=== PATIENT | male | born 1985 | race Asian ===

== ENCOUNTER 2020-04-13 20:53 | Emergency (ER) | payer OTHER ==
[2020-04-13] MEDS ORDERED: NA CHLORIDE 0.9% 1,000 ML ONE (22:06)
[2020-04-13] MEDS ORDERED: FENTANYL CITR 100 MCG/2 ML ONE (22:06)
[2020-04-13] MEDS ORDERED: KETAMINE HCL 500 MG/5 ML VIAL ONE (22:12)
[2020-04-13] MEDS ORDERED: PROMETHAZINE INJ 25 MG/ML AMP ONE (22:12)
--- NOTE | 2020-04-14 00:07 | ER ---
Nurse's Notes [facility] [place] Name: Bronson Mosher Age: 34 yrs Sex: Male : 1985 Arrival Date: 04/13/2020 Time: 20:54 Bed 13 Private MD: Diagnosis: Dislocation and sprain of joints and ligaments of elbow;Distal humerus fracture;Fall on same level from slipping, tripping and stumbling with subsequent striking against other object Presentation: 04/13 21:25 Chief complaint: Patient states: Patient was fishing and felt into his left arm. ao Patient C/O pain in the left elbow. Coronavirus screen: Proceed with normal triage. Ebola Screen: Patient negative for fever greater than or equal to 101.5 degrees Fahrenheit, and additional compatible Ebola Virus Disease symptoms Patient denies exposure to infectious person. Patient denies travel to an Ebola-affected area in the 21 days before illness onset. Initial Sepsis Screen: Does the patient meet any 2 criteria? No. Patient's initial sepsis screen is negative. Does the patient have a suspected source of infection? No. Patient's initial sepsis screen is negative. Risk Assessment: Do you want to hurt yourself or someone else? Patient reports no desire to harm self or others. Onset of symptoms was April 13, 2020 at 20:30. 21:25 Method Of Arrival: Wheelchair ao 21:25 Acuity: ALESHA 3 ao Triage Assessment: 21:45 General: Appears in no apparent distress. uncomfortable, Behavior is calm, cooperative, vc appropriate for age. Historical: - Allergies: 21:28 No Known Allergies; ao - Home Meds: 21:28 None [Active]; ao - PMHx: 21:28 None; ao - PSHx: 21:28 None; ao - Immunization history:: Adult Immunizations up to date. - Social history:: Smoking status: Patient denies any tobacco usage or history of. Patient/guardian denies using alcohol, street drugs. Screenin:45 Abuse screen: Denies threats or abuse. Nutritional screening: No deficits noted. vc Tuberculosis screening: No symptoms or risk factors identified. Fall Risk Fall in past 12 months (25 points). No secondary diagnosis (0 pts). IV access (20 points). Ambulatory Aid- None/Bed Rest/Nurse Assist (0 pts). Gait- Normal/Bed Rest/Wheelchair (0 pts) Mental Status- Oriented to own ability (0 pts). Total Morales Fall Scale indicates Low Risk Score (25-44 pts). Fall prevention measures have been instituted. Side Rails Up X 2 Frequent Obs/Assesments occuring As available Patient and Family Educated on Fall Prevention Program and strategies. Assessment: 21:45 General: Appears in no apparent distress. uncomfortable, Behavior is calm, cooperative, vc appropriate for age. Pain: Complains of pain in left arm and left elbow Pain currently is 8 out of 10 on a pain scale. at worst was 10 out of 10 on a pain scale. Quality of pain is described as sharp, shooting, stabbing, Pain began 1 hour ago. Is continuous, Alleviated by rest, Aggravated by increased activity. Neuro: Level of Consciousness is awake, alert, obeys commands, Oriented to person, place, time, situation, Appropriate for age. Cardiovascular: Capillary refill < 3 seconds Patient's skin is warm and dry. Respiratory: Airway is patent Respiratory effort is even, unlabored, Respiratory pattern is regular, symmetrical. GI: No signs and/or symptoms were reported involving the gastrointestinal system. : No signs and/or symptoms were reported regarding the genitourinary system. Derm: Skin is intact, is healthy with good turgor, Skin temperature is warm. Musculoskeletal: Bony deformity noted of left elbow Swelling present in left arm. 22:45 Reassessment: Patient appears in no apparent distress at this time. Patient and/or vc family updated on plan of care and expected duration. Pain level reassessed. Patient is alert, oriented x 3, equal unlabored respirations, skin warm/dry/pink. 23:00 Reassessment: Patient appears in no apparent distress at this time. Patient laying with vc eyes closed, chest rising and falling equally. 04/14 00:00 Reassessment: Patient appears in no apparent distress at this time. No changes from vc previously documented assessment. 00:30 Reassessment: Patient appears in no apparent distress at this time. Patient and/or vc family updated on plan of care and expected duration. Pain level reassessed. Patient is alert, oriented x 3, equal unlabored respirations, skin warm/dry/pink. Patient states feeling better. 00:38 Reassessment: Patient waiting for disk with xrays before discharge. vc Vital Signs: 04/13 21:25 BP 129 / 90; Pulse 85; Resp 16; Temp 97.3(O); Pulse Ox 98% on R/A; Weight 83.46 kg; ao Height 5 ft. 8 in. (172.72 cm); Pain 8/10; 22:41 BP 126 / 84; Pulse 75; Resp 19; Pulse Ox 100% on R/A; vc 23:00 BP 134 / 98; Pulse 78; Resp 15; Pulse Ox 100% on R/A; vc 23:30 BP 134 / 85; Pulse 78; Resp 18; Pulse Ox 100% ; vc 04/14 00:00 BP 129 / 85; Pulse 77; Resp 19; Pulse Ox 100% ; vc 04/13 21:25 Body Mass Index 27.98 (83.46 kg, 172.72 cm) ao ED Course: 04/13 20:54 Patient arrived in ED. cl3 21:28 Triage completed. ao 21:28 Arm band placed on right wrist. Patient placed in an exam room, on air sampling and monitoring, on ao pulse oximetry. 21:36 Mairlin Elder FNP-C is PHCP. snw 21:37 Varun Varela MD is Attending Physician. snw 21:45 Patient has correct armband on for positive identification. child monitor on. Pulse vc ox on. NIBP on. 21:45 Inserted saline lock: 20 gauge in right antecubital area, using aseptic technique. ao Blood collected. 21:58 Shiloh Mcbride, RN is Primary Nurse. vc 21:59 Elbow Left 3 View XRAY In Process Unspecified. EDMS 22:56 Assist provider with reduction of left elbow using manipulation, Set up for procedure. vc Performed by Marilin HOLT Immobilized with terrie wrap, Patient tolerated well. 23:54 Sling applied to left arm. jp3 04/14 00:06 Lexa Rodriguez MD is Referral Physician. snw 00:30 IV discontinued, intact, bleeding controlled, No redness/swelling at site. Pressure vc dressing applied. 01:44 Elbow Left 2 View XRAY In Process Unspecified. EDMS Administered Medications: 04/13 22:04 Drug: NS 0.9% 1000 ml Route: IV; Rate: 1 bolus; Site: right antecubital; ao 22:04 Drug: fentaNYL (PF) 50 mcg Route: IVP; Site: right antecubital; ao 22:16 Drug: Phenergan 6.25 mg Route: IVP; Site: right antecubital; ah 22:48 Drug: Ketamine 80 mg Route: IVP; Site: right antecubital; vc 04/14 00:31 Drug: [place] (7.5 mg-325 mg) 1 tabs Route: PO; vc Outcome: 00:06 Discharge ordered by . snrei 00:45 Patient left the ED. lp1 00:45 Discharged to home via wheelchair, with family. vc 00:45 Condition: improved 00:45 Discharge instructions given to patient, Instructed on discharge instructions, follow up and referral plans. no drinking with medication, no driving heavy equipment, medication usage, Demonstrated understanding of instructions, follow-up care, medications, Prescriptions given X 2. Signatures: Dispatcher [employer] EDMS Marilin Elder, DIESEL POWERPLANT SUPERVISOR-C DIESEL POWERPLANT SUPERVISOR-Csnw Betzaida Calderon RN RN lp1 Erick Bee RN RN ao Pisarski, Jacob jp3 Uvaldo Vuong cl3 Shiloh Mcbride RN RN vc Harris, Amy, RN RN
--- NOTE | 2020-04-14 00:07 | EDPHYS ---
Physician Documentation [facility] Name: Son Nomi Age: 34 yrs Sex: Male : 1985 Arrival Date: 04/13/2020 Time: 20:54 Bed 13 Private MD: ED Physician Varun Varela HPI: 04/13 21:46 This 34 yrs old Male presents to ER via Wheelchair with complaints of Arm Pain. snw 21:46 The patient or guardian complains of decreased range of motion, injury, pain, that is snw acute. The complaints affect the left elbow. Context: The problem was sustained outdoors, resulted from a fall, the patient slipped. Onset: The symptoms/episode began/occurred suddenly, just prior to arrival. Associated signs and symptoms: Pertinent positives: decreased range of motion, pain, swelling. Severity of symptoms: At their worst the symptoms were moderate, severe. The patient has not experienced similar symptoms in the past. It is unknown whether or not the patient has recently seen a physician. pt [place] the [place] and slipped, fell onto left elbow, denies other injury, no LOC. Historical: - Allergies: 21:28 No Known Allergies; ao - Home Meds: 21:28 None [Active]; ao - PMHx: 21:28 None; ao - PSHx: 21:28 None; ao - Immunization history:: Adult Immunizations up to date. - Social history:: Smoking status: Patient denies any tobacco usage or history of. Patient/guardian denies using alcohol, street drugs. ROS: 21:46 Constitutional: Negative for fever, chills, and weight loss, Eyes: Negative for injury, snw pain, redness, and discharge, ENT: Negative for injury, pain, and discharge, Neck: Negative for injury, pain, and swelling, Cardiovascular: Negative for chest pain, palpitations, and edema, Respiratory: Negative for shortness of breath, cough, wheezing, and pleuritic chest pain, Abdomen/GI: Negative for abdominal pain, nausea, vomiting, diarrhea, and constipation, Back: Negative for injury and pain, : Negative for injury, bleeding, discharge, and swelling, Skin: Negative for injury, rash, and discoloration, Neuro: Negative for headache, weakness, numbness, tingling, and seizure, Psych: Negative for depression, anxiety, suicide ideation, homicidal ideation, and hallucinations. 21:46 MS/extremity: Positive for injury or acute deformity, decreased range of motion, pain, of the left elbow. Exam: 21:45 Constitutional: This is a well developed, well nourished patient who is awake, alert, snw and in no acute distress. Head/Face: Normocephalic, atraumatic. Eyes: Pupils equal round and reactive to light, extra-ocular motions intact. Lids and lashes normal. Conjunctiva and sclera are non-icteric and not injected. Cornea within normal limits. Periorbital areas with no swelling, redness, or edema. ENT: Nares patent. No nasal discharge, no septal abnormalities noted. Tympanic membranes are normal and external auditory canals are clear. Oropharynx with no redness, swelling, or masses, exudates, or evidence of obstruction, uvula midline. Mucous membranes moist. Neck: Trachea midline, no thyromegaly or masses palpated, and no cervical lymphadenopathy. Supple, full range of motion without nuchal rigidity, or vertebral point tenderness. No Meningismus. Chest/axilla: Normal chest wall appearance and motion. Nontender with no deformity. No lesions are appreciated. Cardiovascular: Regular rate and rhythm with a normal S1 and S2. No gallops, murmurs, or rubs. Normal PMI, no JVD. No pulse deficits. Respiratory: Lungs have equal breath sounds bilaterally, clear to auscultation and percussion. No rales, rhonchi or wheezes noted. No increased work of breathing, no retractions or nasal flaring. Abdomen/GI: Soft, non-tender, with normal bowel sounds. No distension or tympany. No guarding or rebound. No evidence of tenderness throughout. Back: No spinal tenderness. No costovertebral tenderness. Full range of motion. Skin: Warm, dry with normal turgor. Normal color with no rashes, no lesions, and no evidence of cellulitis. Neuro: Awake and alert, GCS 15, oriented to person, place, time, and situation. Cranial nerves II-XII grossly intact. Motor strength 5/5 in all extremities. Sensory grossly intact. Cerebellar exam normal. Normal gait. Psych: Awake, alert, with orientation to person, place and time. Behavior, mood, and affect are within normal limits. 21:45 Musculoskeletal/extremity: Extremities: grossly normal except: noted in the left elbow: decreased ROM, pain, swelling, ROM: limited active range of motion due to pain, in the left arm, limited passive range of motion due to pain, Circulation is intact in all extremities. Sensation intact. Joints: All joints are normal except the left elbow displays deformity, pain at rest, painful range of motion, swelling, tenderness. Vital Signs: 21:25 BP 129 / 90; Pulse 85; Resp 16; Temp 97.3(O); Pulse Ox 98% on R/A; Weight 83.46 kg; ao Height 5 ft. 8 in. (172.72 cm); Pain 8/10; 22:41 BP 126 / 84; Pulse 75; Resp 19; Pulse Ox 100% on R/A; vc 23:00 BP 134 / 98; Pulse 78; Resp 15; Pulse Ox 100% on R/A; vc 23:30 BP 134 / 85; Pulse 78; Resp 18; Pulse Ox 100% ; vc 04/14 00:00 BP 129 / 85; Pulse 77; Resp 19; Pulse Ox 100% ; vc 04/13 21:25 Body Mass Index 27.98 (83.46 kg, 172.72 cm) ao Procedures: 04/13 23:39 Splinting: Splint applied to left elbow using Orthoglass splint, sling, applied by snw myself. post reduction film - reveals normal alignment, Examined by me, post splint application: neurovascular intact, 2+ distal pulses palpable, brisk capillary refill noted, Patient tolerated well. Reduction: of the left elbow, using traction, Immobilized with sugar tong with posterior . Patient tolerated well. Post reduction film - reveals improved alignment. Moderate sedation: Pre-procedure assessment: the patient has been NPO 4 hour(s) prior to arrival, ASA physical classification: I - healthy, no underlying organic disease, Airway assessment: able to hyperextend neck, able to maintain airway, can open mouth without difficulty, Mallampati classification of tongue size: I - faucial pillars, soft palate, and uvula can be fully visualized, Monitoring during procedure: court recording monitor, continuous pulse oximetry, nurse at bedside at all times, Medications employed: Fentanyl, 50 mcg(s), Ketamine, 80 mg(s), Post-procedure assessment: the patient is moderately sedated, Respiratory status: even and unlabored, a reversal agent was not used. MDM: 21:39 Patient medically screened. snw 04/14 00:12 Data reviewed: vital signs, nurses notes. Data interpreted: Pulse oximetry: on room air snw is 98 %. Interpretation: normal. Counseling: I had a detailed discussion with the patient and/or guardian regarding: the historical points, exam findings, and any diagnostic results supporting the discharge/admit diagnosis, radiology results, the need for outpatient follow up, to return to the emergency department if symptoms worsen or persist or if there are any questions or concerns that arise at home. Response to treatment: the patient's symptoms have markedly improved after treatment. Special discussion: I have referred the patient to see his PCP for further evaluation of high blood pressure. Based on the history and exam findings, there is no indication for further emergent testing or inpatient evaluation. I discussed with the patient/guardian the need to see the orthopedic surgeon for further evaluation of the symptoms. 00:12 ED course: Markedly improved, + sensation, + NVS intact, discussed RICE, NVS eval, and snw need for f/u. Pt voices understanding. 04/13 21:30 Order name: Elbow Left 3 View XRAY snw 04/13 22:53 Order name: Elbow Left 2 View XRAY snw 04/13 21:57 Order name: Conscious Sedation; Complete Time: 23:45 snw 04/13 22:53 Order name: Sling; Complete Time: 23:55 snw 04/13 22:55 Order name: Posterior Elbow Splint; Complete Time: 23:45 snw Administered Medications: 04/13 22:04 Drug: NS 0.9% 1000 ml Route: IV; Rate: 1 bolus; Site: right antecubital; ao 22:04 Drug: fentaNYL (PF) 50 mcg Route: IVP; Site: right antecubital; ao 22:16 Drug: Phenergan 6.25 mg Route: IVP; Site: right antecubital; ah 22:48 Drug: Ketamine 80 mg Route: IVP; Site: right antecubital; vc 04/14 00:31 Drug: [place] (7.5 mg-325 mg) 1 tabs Route: PO; vc Disposition: 06:41 Co-signature as Attending Physician, Varun Varela MD. [email or web address] Disposition: 04/14/20 00:06 Discharged to Home. Impression: Dislocation and sprain of joints and ligaments of elbow, Distal humerus fracture, Fall on same level from slipping, tripping and stumbling with subsequent striking against other object. - Condition is Stable. - Discharge Instructions: Cast or Splint Care, Adult, Elbow Dislocation, Fall Prevention in the Home, Humerus Fracture Treated With Immobilization, RICE for Routine Care of Injuries, How to Use a Sling. - Prescriptions for Mobic 7.5 mg Oral Tablet - take 1 tablet by ORAL route every 12 hours take with food; 20 tablet. orphenadrine citrate 100 mg Oral Tablet Sustained Release - take 1 tablet by ORAL route 2 times per day As needed; 20 tablet. - Work release form, Medication Reconciliation Form, Thank You Letter, Antibiotic Education, Prescription Opioid Use form. - Follow up: Emergency Department; When: As needed; Reason: Worsening of condition. Follow up: Lexa Rodriguez; When: 1 - 2 days; Reason: Recheck today's complaints, Continuance of care. Signatures: Dispatcher [employer] EDMS Marilin Elder, NABIL-C TILE MECHANIC-Csnw Betzaida Calderon RN RN lp1 Erick Bee RN Shiloh Knight RN RN vc Harris, Amy, RN RN ah Holmes, Maurice, MD MD 7 Corrections: (The following items were deleted from the chart) 04/13 22:55 22:53 Splint - Sugar Tong - Forearm ordered. snw snw 04/14 00:45 00:06 04/14/2020 00:06 Discharged to Home. Impression: Dislocation and sprain of joints lp1 and ligaments of elbow; Distal humerus fracture; Fall on same level from slipping, tripping and stumbling with subsequent striking against other object. Condition is Stable. Discharge Instructions: Cast or Splint Care, Adult, Elbow Dislocation, Fall Prevention in the Home, Humerus Fracture Treated With Immobilization, How to Use a Sling. Prescriptions for Mobic 7.5 mg Oral Tablet - take 1 tablet by ORAL route every 12 hours take with food; 20 tablet, orphenadrine citrate 100 mg Oral Tablet Sustained Release - take 1 tablet by ORAL route 2 times per day As needed; 20 tablet. and Forms are Medication Reconciliation Form, Thank You Letter, Antibiotic Education, Prescription Opioid Use. Follow up: Emergency Department; When: As needed; Reason: Worsening of condition. Follow up: Lexa Rodriguez; When: 1 - 2 days; Reason: Recheck today's complaints, Continuance of care. snw
[2020-04-14] MEDS ORDERED: HYDROCODONE/APAP 7.5/325 MG TAB ONE (00:32)
[2020-04-14 00:58] VITALS: TEMP 97.3
[2020-04-14 01:04] VITALS: BP 151/93; O2SAT 100
--- NOTE | 2020-04-14 08:32 | RAD REPORT ---
EXAM DESCRIPTION: RAD - Elbow Left 3 View - 04/13/2020 9:59 pm CLINICAL HISTORY: Pain;Smash injury COMPARISON: No comparisons FINDINGS: Elbow dislocation is seen. Moderate size fracture fragment projects adjacent to the construction electrician olateral aspect of the humerus distally. Small bony avulsion fragment also seen in the region of the medial humeral condyle.
--- NOTE | 2020-04-14 08:39 | RAD REPORT ---
EXAM DESCRIPTION: RAD - Elbow Left 2 View - 04/14/2020 1:41 am CLINICAL HISTORY: PAIN COMPARISON: Elbow Left 3 View dated 04/13/2020 FINDINGS: Only a single lateral projection was submitted. Previously noted elbow dislocation appears reduced. Small bony fragments are seen along the anterior aspect of the elbow joint. Crescentic frac ture fragment is also noted posteriorly.
== END 2020-04-14 00:45 | disposition home or self-care (01) ==
LOC: ER 20:53
PROC: 0RSMXZZ Reposition Left Elbow Joint, External Approach (ICD-10-PCS; principal; 2020-04-14)
DX: S53.195A Other dislocation of left ulnohumeral joint, initial encounter (principal); S42.402A Unspecified fracture of lower end of left humerus, initial encounter for closed fracture; W01.198A Fall on same level from slipping, tripping and stumbling with subsequent striking against other object, initial encounter; Y93.89 Activity, other specified; Y92.832 Beach as the place of occurrence of the external cause
CPT/HCPCS: 73080; 73070; 96375; 96374; 99285; 24605; J2550; J3010; J7030